=== PATIENT | male | born 1980 | race Caucasian/White ===

== ENCOUNTER 2018-03-31 01:30 | Outpatient (CLI) | payer OTHER, MEDICAID | END 2018-03-31 01:31 | disposition home or self-care (01) | LOC: LAB 01:30 | PROVIDERS: ATTEND Pathology Blood Banking & Transfusion Medicine | DX: Z01.89 Encounter for other specified special examinations (principal) | CPT/HCPCS: 36415 ==

== ENCOUNTER 2024-01-09 12:45 | Outpatient (CLI) | payer MEDICAID | END 2024-01-09 13:00 | disposition home or self-care (01) | LOC: LAB.N 12:45 | PROVIDERS: ATTEND Family Medicine | DX: L03.011 Cellulitis of right finger (principal) | CPT/HCPCS: 87070; 87205 ==